=== PATIENT | male | born 1975 | race Asian ===

== ENCOUNTER 2019-04-16 07:36 | Emergency (ER) | payer BC ==
[~2019-04-16] VITALS: Ht 185.4 cm; Wt 83.9 kg
[2019-04-16 07:53] VITALS: BP_SYST 136
--- NOTE | 2019-04-16 08:10 | NUR ---
Patient to ER bed 6 to gown for evaluation. Side rails up. Report given to Cheryl
--- NOTE | 2019-04-16 08:11 | NUR ---
Patient presented to ER C/O ALOC. Patient A&OX3, skin pink and warm, ambulatory to ER, patientdenies pain, denies N/V/D. Patient brougt in by , states patient repeating same question "yesterday was thankgiving, right?". Patient able answer questions: , Date, location, Place of employment, family names. of patient states patient usually A&OX4, patient woke up and got ready for work as usual this morning and then reported to that he doesnt not feel like himself"
--- NOTE | 2019-04-16 08:13 | NUR ---
ER Dr. Baca at bedside examining patient.
--- NOTE | 2019-04-16 08:25 | NUR ---
# 20 gauge angiocath placed to left AC. Use of asceptic technique. Opsite placed over site. Blood return noted. Blood for lab drawn from site. Flushed with 10 cc of normal saline. No evidence of infiltration noted. Patient tolerated well. Consent for CT obtained by patient, present.
[2019-04-16 08:27] LABS: BASOPHILS % (AUTO) 0.9 % (0.0-2.0); EOSINOPHILS # (AUTO) 0.1 K/uL (0.0-0.4); EOSINOPHILS % (AUTO) 2.8 % (0.0-4.0); HEMATOCRIT 42.1 % (36-54); HEMOGLOBIN 14.6 g/dL (14.0-18.0); MEAN CORPUSCULAR HEMOGLOBIN 30 pg (27-31); MEAN CORPUSCULAR HGB CONC 35 % (32-36); MEAN CORPUSCULAR VOLUME 87 fL (79.0-98.0); MONOCYTES # (AUTO) 0.4 K/uL (0.0-1.0); MONOCYTES % (AUTO) 10.4 % (1.7-9.3); NEUTROPHILS # (AUTO) 2.2 K/uL (1.8-7.7); NEUTROPHILS % (AUTO) 59.9 % (40.0-70.0); PLATELET COUNT (AUTO) 177 K/uL (130-430); RED BLOOD CELL COUNT(AUTO) 4.84 MIL/uL (4.2-6.2); RED CELL DISTRIBUTION WIDTH 13.5 % (9.0-15.0); WHITE BLOOD COUNT (AUTO) 3.7 K/uL (4.8-10.8)
--- NOTE | 2019-04-16 08:30 | NUR ---
Patient to Radiology with staff via [facility].
[2019-04-16] MEDS ORDERED: IOHEXOL 350 mgI/mL, 150 ML INFUS..BTL IV ONE (08:34)
[2019-04-16 08:39] LABS: BARBITURATE, URINE NEGATIVE (NEG <=200); BENZODIAZEPINE, URINE NEGATIVE (NEG <=150); CANNABINOID, URINE NEGATIVE (NEG <=50); COCAINE, URINE NEGATIVE (NEG <=150); METHAMPHETAMINES SCREEN,URINE NEGATIVE (NEG <=500); OPIATE, URINE NEGATIVE (NEG <=100); PHENCYCLIDINE SCREEN,URINE NEGATIVE (NEG <=25); UR TRICYCLIC ANTIDEPRESSANTS NEGATIVE (NEG <=300); URINE AMPHETAMINE NEGATIVE (NEG <=500); URINE METHADONE NEGATIVE (NEG <=200); URINE OXYCODONE SCREEN NEGATIVE (NEG <=100); URINE PROPOXYPHENE SCREEN NEGATIVE (NEG <=300)
[2019-04-16 08:42] LABS: CALCIUM 8.5 mg/dL (8.4-11.0); CREATININE 1.11 mg/dL (0.55-1.30); POTASSIUM 4.3 mmol/L (3.5-5.1)
[2019-04-16 08:47] LABS: ALBUMIN 3.9 g/dL (3.4-4.8); TOTAL BILIRUBIN 0.3 mg/dL (0.0-1.0)
[2019-04-16 08:49] LABS: CHOLESTEROL 151 mg/dL (<200); HDL CHOLESTEROL 48 mg/dL (>45); LDL CHOLESTEROL 95 mg/dL (<100); TRIGLYCERIDES 27 mg/dL (30-150)
--- NOTE | 2019-04-16 09:38 | NUR ---
Patient sitting-up in [facility], family members at bedside
--- NOTE | 2019-04-16 11:42 | NUR ---
Patient to ER 6 from MRI
[2019-04-16 13:52] VITALS: BP_SYST 129
--- NOTE | 2019-04-16 13:52 | NUR ---
Patient given written and verbal discharge instructions and verbalizes understanding. ER MD discussed with patient the results and treatment provided. Patient in stable condition. ID arm band removed. IV catheter removed intact and dressing applied, no active bleeding. No RX given. Patient educated on pain management and to follow up with PMD. Pain Scale 0/10. Opportunity for questions provided and answered.
== END 2019-04-16 13:52 | disposition home or self-care (01) ==
LOC: SED 07:36
DX: R41.0 Disorientation, unspecified (principal)
CPT/HCPCS: 36415; 70450; 70496; 70498; 70551; 71045; 80053; 80061; 80307; 83880; 84484; 85025; 93005; 99284; Q9967